=== PATIENT | female | born 1945 | race Hispanic/Latino ===

== ENCOUNTER 2017-08-03 08:06 | Outpatient (CLI) | payer MEDICARE ==
--- NOTE | 2017-08-04 09:20 | Mammography Report ---
RIGHT DIGITAL SCREENING MAMMOGRAM with CAD: 08/03/17 08:06:00 CLINICAL: Routine screening. Breast cancer survivor status post left mastectomy. COMPARISON:03/16/16, 11/28/14 and additional mammograms from 2013 and 2012. FINDINGS: The breast is heterogeneously dense, which may obscure small masses.No mass, architectural distortion or suspicious calcifications. IMPRESSION: No mammographic evidence of malignancy. BI-RADS CATEGORY: 1 - - Negative RECOMMENDATION: Routine screening in one year. ACR BI-RADS MAMMOGRAPHIC CODES: 0 = Needs additional imaging evaluation; 1 = Negative; 2 = Benign; 3 = Probably benign; 4 = Suspicious; 5 = Malignant; 6 = Known biopsy-proven malignancy COMMENT: 1. Dense breast tissue, i.e., adenosis, fibrocystic changes, etc., may obscure an underlying neoplasm. 2. Approximately 10% of cancers are not detected with mammography. 3. A negative mammography report should not delay biopsy if a clinically suspicious mass is present. COMMENT: Patient follow-up letters are generated via our [employer] application.
== END 2017-08-03 08:07 | disposition home or self-care (01) ==
LOC: SPVWC 08:06
PROVIDERS: ATTEND Family Medicine
DX: Z12.31 Encounter for screening mammogram for malignant neoplasm of breast (principal); Z90.12 Acquired absence of left breast and nipple

== ENCOUNTER 2019-03-06 08:36 | Outpatient (CLI) | payer MEDICARE ==
--- NOTE | 2019-03-07 11:12 | Mammography Report ---
DIGITAL SCREENING MAMMOGRAM WITH CAD, 03/06/2019 INDICATION: Routine screening mammography. Breast cancer survivor status post left mastectomy. TECHNIQUE: Digital right 2D mammography was obtained in the craniocaudal and mediolateral oblique pr ojections. This examination was interpreted with the benefit of Computer-Aided Detection analysis. COMPARISON: 08/03/2017 FINDINGS: Breast Density: The breast is heterogeneously dense, which may obscure small masses. There is no evid ence of dominant mass, suspicious calcifications or architectural distortion in either breast. IMPRESSION: No mammographic evidence of malignancy. Follow up recommendation: Routine yearly BI-RADS Category 1: Negative. A "normal" or negative report should not discourage follow up or biopsy of a clinically significant f inding. A written summary of these findings will be mailed to the patient. The patient will be entered into a mammography reporting system which will generate a reminder letter for the patient's next appointmen t at the appropriate interval. The [employer] recommends yearly mammograms starting at age 40 and continuing as l ovi as a woman is in good health. Breast MRI is recommended for women with an approximate 20-25% or greater lifetime risk of breast cancer, including women with a strong family history of breast or ova hansa cancer or who have been treated for Hodgkin's disease. Signer Name: Yonatan Morelos MD Signed: 03/07/2019 11:08 AM Workstation Name: [id number]
== END 2019-03-06 08:37 | disposition home or self-care (01) ==
LOC: SPVWC 08:36
PROVIDERS: ATTEND Family Medicine
DX: Z12.31 Encounter for screening mammogram for malignant neoplasm of breast (principal)